=== PATIENT | female | born 2000 | race Caucasian/White ===

== ENCOUNTER 2019-02-24 14:00 | Emergency (ER) | payer OTHER ==
[~2019-02-24] VITALS: Ht 165.1 cm; Wt 70.3 kg
--- NOTE | 2019-02-24 14:18 | NUR ---
"I have WYLIE was fine until this morning got dizzy/body aches/chest hurts", to ER 15, hooked to monitor, changed to hosp gown, provided w warm blanket, ABBY Brown at bedside
[2019-02-24] MEDS ORDERED: LORAZEPAM 1 MG TABLET PO ONE (15:00)
[2019-02-24] MEDS ORDERED: LORAZEPAM 1 MG TABLET ONE (15:05)
--- NOTE | 2019-02-24 16:01 | NUR ---
Patient discharged to home with mother in stable condition. Written and verbal after care instructions given. Patient verbalizes understanding of instruction.
[2019-02-24 16:38] VITALS: BP 132/90
== END 2019-02-24 16:16 | disposition home or self-care (01) ==
LOC: ER 14:00
DX: R55 Syncope and collapse (principal); F41.0 Panic disorder [episodic paroxysmal anxiety]; R00.0 Tachycardia, unspecified; R00.2 Palpitations